=== PATIENT | male | born 1995 | race Caucasian/White ===

== ENCOUNTER → 2022-04-09 | Outpatient (CLI) | payer OTHER ==
[2022-04-09 17:35] LABS: C Reactive Protein <0.30 mg/dL (0.00-0.80)
== END | disposition home or self-care (01) ==
LOC: LABWHC1 08:51
DX: G89.4 Chronic pain syndrome (principal); R20.2 Paresthesia of skin
CPT/HCPCS: 36415; 82306; 84403; 85652; 86140

== ENCOUNTER → 2022-12-12 | Outpatient (CLI) | payer OTHER ==
--- NOTE | 2022-12-12 21:38 | XR ---
EXAMINATION TYPE: XR cervical spine comp DATE OF EXAM: 12/12/2022 TECHNIQUE: Frontal, lateral, oblique, swimmers, and open mouth view of the cervical spine are gege d. HISTORY: M54.2 neck pain. COMPARISON: Prior cervical spine x-ray December 23, 2021 FINDINGS: The cervical spine is visualized in its entirety from C1 thru the top of T1 level, it is s table and straightened in alignment without evidence of acute fracture or dislocation. The pre-verte bral soft tissue appears within normal limits. The C1-C2 articulation is within normal limits on the open mouth view. Vertebral body heights and disc space heights are preserved. The oblique images ar e within normal limits. Overlying soft tissue is unremarkable. IMPRESSION: As above.
--- NOTE | 2022-12-12 21:39 | XR ---
EXAMINATION TYPE: XR thoracic spine complete DATE OF EXAM: 12/12/2022 CLINICAL HISTORY: Mid back pain TECHNIQUE: Frontal, lateral, and swimmer's view of thoracic spine are obtained. COMPARISON: None. FINDINGS: Thoracic spine show satisfactory alignment without evidence of acute fracture or dislocatio n. Vertebral body heights and disc space heights are preserved. Visualized ribs are intact bilateral ly. IMPRESSION: Unremarkable study.
== END | disposition home or self-care (01) ==
LOC: RADXRMAIN 17:10
PROVIDERS: ATTEND Family Medicine
DX: M54.2 Cervicalgia (principal); M54.6 Pain in thoracic spine
CPT/HCPCS: 72050; 72072